=== PATIENT | male | born 1955 ===

== ENCOUNTER → 2022-04-06 10:42 | Outpatient (BNVA) | payer MEDICARE, SELFPAY | PROVIDERS: Family Provider Family Medicine; PCP Family Medicine; Visit Provider Urology | DX: N40.1 Benign prostatic hyperplasia with lower urinary tract symptoms (principal); R97.20 Elevated prostate specific antigen [PSA]; R39.89 Other symptoms and signs involving the genitourinary system; F32.9 Major depressive disorder, single episode, unspecified; M54.10 Radiculopathy, site unspecified | CPT/HCPCS: 81003; 99203 ==

== ENCOUNTER → 2022-09-24 13:49 | Outpatient (BNVA) | payer MEDICARE, SELFPAY | PROVIDERS: Family Provider Family Medicine; PCP Family Medicine; Visit Provider Urology | DX: N40.1 Benign prostatic hyperplasia with lower urinary tract symptoms (principal); R97.20 Elevated prostate specific antigen [PSA]; R39.89 Other symptoms and signs involving the genitourinary system | CPT/HCPCS: 51798; 81003; 99213 ==

== ENCOUNTER 2023-01-21 11:36 | Outpatient (CLI) | payer MEDICARE, SELFPAY ==
[2023-01-21 12:59] LABS: Prostate Specific AG Urology 30.15 ng/mL (0-4)
== END 2023-01-21 11:37 | disposition home or self-care (01) ==
PROVIDERS: PCP Family Medicine; Visit Provider Urology
DX: R97.20 Elevated prostate specific antigen [PSA] (principal)
CPT/HCPCS: 36415; 84153

== ENCOUNTER → 2023-01-22 13:06 | Outpatient (BNVA) | payer MEDICARE, SELFPAY | PROVIDERS: PCP Family Medicine; Visit Provider Urology | DX: C61 Malignant neoplasm of prostate (principal); R97.20 Elevated prostate specific antigen [PSA]; N40.1 Benign prostatic hyperplasia with lower urinary tract symptoms | CPT/HCPCS: 81003; 99213 ==

== ENCOUNTER 2023-01-23 15:07 | Outpatient (CLI) | payer MEDICARE, SELFPAY ==
--- NOTE | 2023-01-23 15:00 | CT_ITS ---
WS: [id number] CT ABDOMEN AND PELVIS WITH AND WITHOUT CONTRAST HISTORY: PROSTATE CANCER TECHNIQUE: Unenhanced 5 mm axial imaging first performed through the abdomen. Post contrast imaging t hrough the abdomen and pelvis. Oral contrast has not been provided. Sagittal and coronal reformats a re submitted. All CT scans at [facility] use at least one of these dose optimization techniqu es: automated exposure control; mA and/or kV adjustment per patient size (includes targeted exams whe re dose is matched to clinical indication); or iterative reconstruction. CONTRAST: Omnipaque 350; 95 mL IV. DLP: 1873.10 mGy.cm COMPARISON: 10/15/2017 Lung bases are clear. Normal size heart. Small hiatal hernia. Normal size liver and spleen. No bile duct dilatation. Prior cholecystectomy. Normal adrenal glands a nd pancreas. No renal obstruction or mass. Stomach is nondistended. No small bowel obstruction. Numerous scattered diverticula throughout the en tire colon. No colonic obstruction or acute diverticulitis. There is significant diverticular burden in the sigmoid colon. Normal appendix. No ascites or adenopathy. Moderate atherosclerotic plaque with in the aorta. No aneurysm. IVC filter in good position. Urinary bladder is well distended. Prostate gland is enlarged encroaching into the base of the urinar y bladder. Heterogeneous prostate with calcifications. Prostate gland measures 5.9 x 4.8 cm and exten ds over length of 6.6 cm. No osteoblastic or osteolytic bone disease. CT/CT abdomen pelvis wo/w [id number] IMPRESSION: 1. No acute abdominal or pelvic abnormalities. 2. Extensive diverticular disease throughout the colon. Greatest burden in the sigmoid colon. 3. No acute diverticulitis. 4. Prior cholecystectomy. 5. Atherosclerosis aorta. 6. IVC filter in good position.
[2023-01-23 15:48] LABS: Blood Urea Nitrogen 12 mg/dL (8-23); Glomerular Filtration Rate 74.3 mL/min (90-130)
[2023-01-23] MEDS: iohexol 350 mg/mL 500 mL Btl (per mL) IV (15:57)
== END 2023-01-23 15:08 | disposition home or self-care (01) ==
PROVIDERS: PCP Family Medicine; Visit Provider Urology
DX: C61 Malignant neoplasm of prostate (principal); K57.30 Diverticulosis of large intestine without perforation or abscess without bleeding; Z90.49 Acquired absence of other specified parts of digestive tract; I70.0 Atherosclerosis of aorta
CPT/HCPCS: 74178; 82565; 84520; Q9967

== ENCOUNTER 2023-02-12 09:35 | Outpatient (CLI) | payer MEDICARE, SELFPAY ==
--- NOTE | 2023-02-12 09:39 | NM_ITS ---
WS: [id number] NUCLEAR MEDICINE BONE SCAN Radiopharmaceutical: 23.6 Tc-99m MDP mCi IV Injection site: antecubital Postinjection imaging delay: 1 hr CLINICAL INFORMATION: PROSTATE CANCER COMPARISON: None. FINDINGS: Bone lesions: There are no osseous lesions suspicious for metastatic disease. Soft tissue contours: Normal. 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 This is nonspecific be further evaluated with ultrasound Other findings: Moderate degenerative arthritis both knees. Moderate degenerative arthritis both AC j oints. Increased activity about the frontal sinuses likely due to sinusitis. NM/NM bone scan whole body* [id number] IMPRESSION: 1. No evidence of osseous metastatic disease. 2. Punctate area of increased radiotracer activity involving the upper pole RI GHT kidney posteriorly. This is nonspecific and could be further evaluated with renal ultrasound
== END 2023-02-12 09:36 | disposition home or self-care (01) ==
LOC: RAD 09:37
PROVIDERS: PCP Family Medicine; Visit Provider Urology
DX: C61 Malignant neoplasm of prostate (principal)
CPT/HCPCS: 78306; A9561

== ENCOUNTER → 2023-02-14 12:56 | Outpatient (BNVA) | payer MEDICARE, SELFPAY | PROVIDERS: PCP Family Medicine; Visit Provider Urology | DX: C61 Malignant neoplasm of prostate (principal); N40.1 Benign prostatic hyperplasia with lower urinary tract symptoms | CPT/HCPCS: 81003; 99213 ==

== ENCOUNTER 2023-02-19 08:00 | Oncology outpatient (recurring) (ONCR) | payer MEDICARE, SELFPAY | END 2023-03-13 23:59 | disposition home or self-care (01) | LOC: ONCMED 08:00 | PROVIDERS: PCP Family Medicine; Visit Provider Radiology Radiation Oncology | DX: C61 Malignant neoplasm of prostate (principal); K57.30 Diverticulosis of large intestine without perforation or abscess without bleeding; R35.0 Frequency of micturition; Z79.818 Long term (current) use of other agents affecting estrogen receptors and estrogen levels; Z79.899 Other long term (current) drug therapy | CPT/HCPCS: 99204 ==